=== PATIENT | male | born 1985 | race Hispanic/Latino ===

== ENCOUNTER → 2016-06-13 | Day surgery (SDC) | payer OTHER ==
[~2016-06-13] VITALS: Ht 175.3 cm; Wt 86.6 kg
[~2016-06-13] MED LIST: BACITRACIN OINT 30GM As Ordered ONE; BACT800T5 PO; BUPIVACAINE HCL 0.25% 30 ML VIAL As Ordered ONE; BUPIVACAINE HCL 0.25% 30 ML VIAL XX ONE; LIDOCAINE 1% SDV INJ 30 ML VIAL As Ordered ONE; LIDOCAINE 1% SDV INJ 30 ML VIAL XX ONE; LIDOCAINE 2% INJ 100 MG/5 ML SDV (FOR ANES.) As Ordered ONE; LR 1,000 ML IV SCH; MIDAZOLAM INJ 2 MG/2 ML VIAL (J2250) As Ordered ONE; ONDANSETRON 4MG/2ML VIAL (J2405) As Ordered ONE; ONDANSETRON 4MG/2ML VIAL (J2405) IV PRN; PERCOCET PO; PROPOFOL 200 MG/20 ML VIAL As Ordered ONE; dexameTHASONE 4 MG/ML 1ML VIAL (J1100) As Ordered ONE; fentaNYL 100 MCG/2 ML INJECTION (J3010) As Ordered ONE; fentaNYL 100 MCG/2 ML INJECTION (J3010) IV PRN
[2016-06-13 18:15] VITALS: BP 134/73
--- NOTE | 2016-06-14 07:01 | RO ---
DATE OF PROCEDURE: 06/13/2016 PREOPERATIVE DIAGNOSIS: Phimosis. POSTOPERATIVE DIAGNOSIS: Phimosis. PROCEDURE: Circumcision. SURGEON: Dr. Dariel Valenzuela INFORMATICS PHARMACIST: None. ANESTHESIA: General. FINDINGS: Recurrent balanitis, plus phimosis COMPLICATIONS: None. ESTIMATED BLOOD LOSS: N/A. HISTORY OF PRESENT ILLNESS: This is a 30-year-old male patient with a history of recurrent balanitis and phimosis. For this reason, he has consented for a circumcision. PROCEDURE DESCRIPTION: In a patient under general anesthesia in supine position after prepping and draping the area of concern, which included the entire genitalia, we placed a local anesthesia with Marcaine 0.25% and lidocaine 2%, total of 10 mL, in the patient's penis. We then proceeded to do an incision circumferentially 1 cm away from the sulcus of the glans. 4 cm proximal to this one, we did another circumferential incision and excised the foreskin between incision lines. We then sent this foreskin for permanent pathology analysis. With Bovie cautery, we fulgurated the bleeding vessels and then proceeded to connect putting back together the borders of the skin with chromic in separate stitches. We then proceeded to place bacitracin cream on the wound, wrap it with clean 4 x 4's and then wrap it with a Coban. PLAN: The patient will go home today with antibiotics, pain medication. Followup next Saturday for removal of Coban. He may not have sex for 1 month. He can shower after 3 days. There were no complications.
== END | disposition home or self-care (01) ==
LOC: M SDC 11:03
PROVIDERS: ATTEND Urology
DX: N47.1 Phimosis (principal)
CPT/HCPCS: 54161; 88304; J0690; J1100; J2250; J2405; J3010